=== PATIENT | female | born 1965 | race American Indian/Alaskan Native ===

== ENCOUNTER 2021-10-14 10:36 | Outpatient (CLI) | payer OTHER ==
--- NOTE | 2021-10-14 11:31 | XRay Report ---
Hips bilateral with pelvis 3 views INDICATION: Bilateral hip pain without injury IMPRESSION: Minimal to mild degenerative changes are present within both hips. No fracture identified Signer Name: Harris Sandhu MD Signed: 10/14/2021 11:27 AM Workstation Name: [id number]
== END 2021-10-14 10:37 | disposition home or self-care (01) ==
LOC: XRAY 10:36
PROVIDERS: ATTEND Internal Medicine
DX: M16.0 Bilateral primary osteoarthritis of hip (principal)
CPT/HCPCS: 73521

== ENCOUNTER 2022-03-20 18:13 | Emergency (ER) | payer SELFPAY | END 2022-03-20 18:30 | disposition left against medical advice (07) | LOC: ED 18:13 | DX: M54.9 Dorsalgia, unspecified (principal); H53.8 Other visual disturbances; Z53.21 Procedure and treatment not carried out due to patient leaving prior to being seen by health care provider ==

== ENCOUNTER 2022-07-18 13:19 | Outpatient (CLI) | payer OTHER ==
--- NOTE | 2022-07-18 15:26 | XRay Report ---
XR shoulder 2+V LT INDICATION / CLINICAL INFORMATION: M25.512 PAIN IN LEFT SHOULDER. COMPARISON: None available. FINDINGS: BONES/JOINT(S): No acute fracture or subluxation. 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 No focal bone erosions or focal osteopenia to suggest inflammatory arthropathy. SOFT TISSUES: No significant abnormality. ADDITIONAL FINDINGS: None. Signer Name: Emeka Candelaria MD Signed: 07/18/2022 3:22 PM Workstation Name: [email or web address]
--- NOTE | 2022-07-18 15:26 | XRay Report ---
XR hips BILAT 2V w/pelvis INDICATION / CLINICAL INFORMATION: M25.559 PAIN IN UNSPECIFIED HIP. COMPARISON: None available. FINDINGS: BONES/JOINT(S): No acute fracture or subluxation. No significant degenerative changes. No focal bone erosions or focal osteopenia to suggest inflammatory arthropathy. SOFT TISSUES: No significant abnormality. ADDITIONAL FINDINGS: None. Signer Name: Emeka Candelaria MD Signed: 07/18/2022 3:22 PM Workstation Name: [id number]
--- NOTE | 2022-07-18 16:14 | XRay Report ---
BILATERAL KNEES 3 VIEWS INDICATION / CLINICAL INFORMATION: M25.561 PAIN IN RIGHT KNEE COMPARISON: None available. FINDINGS: BONES and JOINT(S): No acute fracture or subluxation. The bones are demineralized with symmetric mode rate medial compartment loss without osteophyte formation or other significant arthritic changes. SOFT TISSUES: No significant abnormality. ADDITIONAL FINDINGS: None. IMPRESSION: Moderate degenerative arthrosis of the knees without acute findings. Signer Name: Ignacio Bradshaw MD Signed: 07/18/2022 4:09 PM Workstation Name: [employer]
== END 2022-07-18 13:20 | disposition home or self-care (01) ==
LOC: XRAY 13:19
PROVIDERS: ATTEND Orthopaedic Surgery
DX: M17.0 Bilateral primary osteoarthritis of knee (principal); M19.012 Primary osteoarthritis, left shoulder; M25.551 Pain in right hip; M25.552 Pain in left hip
CPT/HCPCS: 73521; 73565